=== PATIENT | male | born 1950 | race Caucasian/White ===

== ENCOUNTER 2019-02-04 07:16 | Day surgery (SDC) | payer MEDICARE, OTHER, MEDICAID ==
[2019-02-04] MEDS ORDERED: POLYMYXIN/BACITRACIN 1L IRRIG (09:59)
[2019-02-04] MEDS ORDERED: DEXTROSE 5%-LR 1,000 ML IV (10:00)
[2019-02-04] MEDS ORDERED: CEFAZOLIN 2 GM/50 ML (PMX) 50 ML IVPB (10:00)
[2019-02-04] MEDS ORDERED: SEVOFLURANE 15 MIN (10:19)
[2019-02-04] MEDS ORDERED: MIDAZOLAM 1 MG/ML 2 ML INJ (10:19)
[2019-02-04] MEDS: BUPIVACAINE 0.25% (MPF) 30 ML INJ (10:42)
[2019-02-04] MEDS ORDERED: ROCURONIUM 50 MG INJ (12:13)
[2019-02-04] MEDS ORDERED: GLYCOPYRROLATE 0.4 MG INJ (12:13)
[2019-02-04] MEDS ORDERED: NEOSTIGMINE 3 MG/3 ML SYRINGE (12:13)
[2019-02-04] MEDS ORDERED: LIDOCAINE 2% (SDV) 5 ML INJ (12:13)
[2019-02-04] MEDS ORDERED: PROPOFOL 20 ML (12:13)
[2019-02-04] MEDS ORDERED: CEFAZOLIN 1 GM INJ (12:13)
[2019-02-04] MEDS ORDERED: ONDANSETRON 4 MG INJ (12:15)
[2019-02-04] MEDS ORDERED: HYDROCODONE/APAP (5/325) TAB PO ×2 (12:30)
[2019-02-04] MEDS ORDERED: IBUPROFEN 600 MG TAB PO (12:30)
[2019-02-04] MEDS ORDERED: morphine 2 MG INJ IV (12:30)
[2019-02-04] MEDS ORDERED: ONDANSETRON 4 MG INJ IV (12:30)
[2019-02-04] MEDS: hydrALAzine 20 MG INJ IV (12:52)
[2019-02-04] MEDS ORDERED: MEPERIDINE 25 MG INJ IV (13:00)
[2019-02-04] MEDS ORDERED: KETOROLAC 30 MG INJ IV (13:00)
[2019-02-04] MEDS ORDERED: HYDROmorphONE 1 MG/5 ML IV SYRINGE IV (13:00)
[2019-02-04] MEDS ORDERED: DIPHENHYDRAMINE 50 MG INJ IV (13:00)
[2019-02-04] MEDS ORDERED: LABETALOL HCL 20MG INJ IV (13:00)
[2019-02-04] MEDS: HYDROmorphONE 1 MG/5 ML IV SYRINGE IV (13:14)
[2019-02-04] MEDS: KETOROLAC 30 MG INJ IV (13:14)
[2019-02-04] MEDS: ONDANSETRON 4 MG INJ IV (13:14)
[2019-02-04] MEDS: FENTAnyl 50 MCG/ML VIAL IV (13:22)
== END 2019-02-04 17:00 | disposition home or self-care (01) ==
LOC: SDS 07:16
DX: K40.90 Unilateral inguinal hernia, without obstruction or gangrene, not specified as recurrent (principal)
CPT/HCPCS: 49505; 88302